=== PATIENT | female | born 1995 | race Caucasian/White ===

== ENCOUNTER 2017-04-09 11:28 | Emergency (ER) | payer BC | END 2017-04-09 14:55 | disposition left against medical advice (07) | LOC: UCCORT 11:28 | DX: R39.9 Unspecified symptoms and signs involving the genitourinary system (principal); Z53.21 Procedure and treatment not carried out due to patient leaving prior to being seen by health care provider | CPT/HCPCS: 81003 ==

== ENCOUNTER 2017-04-09 14:56 | Emergency (ER) | payer BC ==
[2017-04-09 17:31] VITALS: BP 134/74
--- NOTE | 2017-04-09 17:54 | UC ---
Complaint Female HPI - HPI Summary HPI Summary: Pt c/o sudden onset of frequency, urgency and dysuria since this morning. Pt also c/o of cold sore on lower lip. Pt states that she has frequent UTI's and has a history of cold sores that only began last year and she was "very sick" with first outbreak. - History Of Current Complaint Stated Complaint: URINARY COMPLAINT Time Seen by Provider: 04/09/17 17:15 Hx Obtained From: Patient Hx Last Menstrual Period: 03/24/17 ?: No Onset/Duration: Sudden Onset, Still Present Timing: Constant Severity Initially: Mild Severity Currently: Moderate - cold sore. Pain Intensity: 0 Character: Dull, Burning Aggravating Factor(s): Urination, Other - touch to lip Alleviating Factor(s): Meds - abreva - Risk Factors Ectopic Risk Factor: Negative Ovarian Torsion Risk Factor: Reproductive Age - Allergies/Home Medications Allergies/Adverse Reactions: Allergies Allergy/AdvReac Type Severity Reaction Status Date / Time No Known Allergies Allergy Verified 04/09/17 17:26 Home Medications: Home Medications Norgestrel/Ethinyl Estrad TAB* [Ogestrel TAB 0.5/0.05*] 1 tab DAILY 04/09/17 [ History Confirmed 04/09/17] PMH/Surg Hx/FS Hx/Imm Hx Previously Healthy: Yes - Surgical History Surgical History: Yes Surgery Procedure, Year, and Place: tonsils. wisdom teeth - Family History Known Family History: Positive: Hypertension, Other - ovarian cancer, maternal grandmother - Social History Occupation: Student Lives: With Family Alcohol Use: Weekly Substance Use Type: None Smoking Status (MU): Never Smoked Tobacco Have You Smoked in the Last Year: No Review of Systems Constitutional: Chills, Fatigue Skin: Other - cold sore on right lower lip Eyes: Negative ENT: Negative Respiratory: Negative Cardiovascular: Negative Gastrointestinal: Negative Genitourinary: Dysuria, Frequency, Urgency Motor: Negative Neurovascular: Negative Musculoskeletal: Negative Neurological: Negative Psychological: Negative Is Patient Immunocompromised?: No All Other Systems Reviewed And Are Negative: Yes Physical Exam Triage Information Reviewed: Yes Appearance: Well-Appearing Vital Signs: Initial Vital Signs Temp 97.4 F 04/09/17 17:27 Pulse 77 04/09/17 17:27 Resp 16 04/09/17 17:27 BP 134/74 04/09/17 17:27 Pulse Ox 100 04/09/17 17:27 Vital Signs Reviewed: Yes Eye Exam: Normal ENT Exam: Normal Dental Exam: Normal Neck exam: Normal Respiratory Exam: Normal Cardiovascular Exam: Normal Musculoskeletal Exam: Normal Neurological Exam: Normal Psychological Exam: Normal Skin Exam: Other - dime size lesion to right lower lip, vessicle fluid filled Complaint Female Dx - Course Course Of Treatment: Pts UA: negative for Leuks, nitrites, blood. Pt c/o dysuria, frequency and urgency. Urine sent for culture. - Differential Dx/Diagnosis Differential Diagnosis/HQI/PQRI: Urinary Tract Infection, Other - herpes simplex 1 Provider Diagnoses: dysuria. 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
== END 2017-04-09 18:14 | disposition home or self-care (01) ==
LOC: UCCORT 14:56
DX: R30.0 Dysuria (principal); B00.1 Herpesviral vesicular dermatitis
CPT/HCPCS: 87086; 99212; G0463

== ENCOUNTER 2017-12-27 07:27 | Emergency (ER) | payer BC ==
[2017-12-27 07:45] VITALS: BP 105/79
--- NOTE | 2017-12-27 07:57 | ED ---
Lower Extremity - HPI Summary HPI Summary: 22 yr old female with the complaint of right ankle pain. Onset yesterday when she fell and twisted right ankle. Pain lateral and medial side of ankle. No foot pain. no proximal leg pain. No other complaints. No other injuries. Pain is moderate. Worse with walking. - History of Current Complaint Chief Complaint: UCLowerExtremity Stated Complaint: S/P FALL RIGHT ANKLE PAIN Time Seen by Provider: 12/27/17 07:44 Hx Last Menstrual Period: 12/09/17 Pain Intensity: 7 - Allergies/Home Medications Allergies/Adverse Reactions: Allergies Allergy/AdvReac Type Severity Reaction Status Date / Time No Known Allergies Allergy Verified 04/09/17 17:26 Home Medications: Home Medications Ibuprofen 400 mg PO ONCE 12/27/17 [History Confirmed 12/27/17] PMH/Surg Hx/FS Hx/Imm Hx - Surgical History Surgery Procedure, Year, and Place: tonsils. wisdom teeth Infectious Disease History: No Infectious Disease History: Denies: Hx Clostridium Difficile, Hx Hepatitis, Hx Human Immunodeficiency Virus (HIV), Hx of Known/Suspected MRSA, Hx Shingles, Hx Tuberculosis, Hx Known/ Suspected VRE, Hx Known/Suspected VRSA, History Other Infectious Disease, Traveled Outside the [place] in Last 30 Days - Family History Known Family History: Positive: Hypertension, Other - ovarian cancer, maternal grandmother - Social History Occupation: Student Alcohol Use: Weekly Substance Use Type: Reports: None Smoking Status (MU): Never Smoked Tobacco Have You Smoked in the Last Year: No Review of Systems Positive: Other - ankle pain All Other Systems Reviewed And Are Negative: Yes Physical Exam Triage Information Reviewed: Yes Vital Signs On Initial Exam: Initial Vitals Temp Pulse Resp BP Pulse Ox 97.6 F 85 16 105/79 99 12/27/17 07:41 12/27/17 07:41 12/27/17 07:41 12/27/17 07:41 12/27/17 07:41 Vital Signs Reviewed: Yes Appearance: Positive: Well-Appearing, No Pain Distress Skin: Positive: Warm, Skin Color Reflects Adequate Perfusion Head/Face: Positive: Normal Head/Face Inspection Eyes: Positive: EOMI ENT: Positive: Normal ENT inspection Neck: Positive: Nontender Respiratory/Lung Sounds: Positive: Clear to Auscultation, Breath Sounds Present Cardiovascular: Positive: RRR. Negative: Murmur Abdomen Description: Positive: Nontender Musculoskeletal: Positive: Other - No tenderness over the proximal fibula right leg. She has STS and tenderness over the lateral malleolus and medial malleolus. No tenderness over the lateral foot. Neurological: Positive: Sensory/Motor Intact, Alert, Oriented to Person Place, Time, CN Intact II-III Psychiatric: Positive: Normal - See Coma Scale Best Eye Response: 4 - Spontaneous Best Motor Response: 6 - Obeys Commands Best Verbal Response: 5 - Oriented Coma Scale Total: 15 Diagnostics - Vital Signs Vital Signs Temp Pulse Resp BP Pulse Ox 12/27/17 07:41 97.6 F 85 16 105/79 99 - Laboratory Lab Statement: Any lab studies that have been ordered have been reviewed, and results considered in the medical decision making process. - Radiology ankle right Radiology Interpretation Completed By: Radiologist - STS lat malleolus Lower Extremity Course/Dx - Course Course Of Treatment: 22 yr old female with ankle pain. - Diagnoses Provider Diagnoses: Sprain of ankle, right Discharge - Sign-Out/Discharge Documenting (check all that apply): Patient Departure All imaging exams completed and their final reports reviewed: Yes - Discharge Plan Condition: Good Disposition: HOME Prescriptions: Ibuprofen TAB* [Motrin TAB* 400 MG] 400 mg PO Q6H PRN #20 tab PRN Reason: Pain Patient Education Materials: Ankle Sprain (ED) Referrals: No Primary Care Phys,NOPCP [Primary Care Provider] - Lenard Miller MD [Medical Doctor] - 2 Days - Billing Disposition and Condition Condition: GOOD Disposition: Home
--- NOTE | 2017-12-27 08:16 | RAD ---
INDICATION: Right ankle pain after twisting injury the previous day COMPARISON: None. TECHNIQUE: 3 views of the right ankle were obtained. FINDINGS: There is a mild degree of asymmetric soft tissue swelling overlying the fibular malleolus. The bones are normal alignment. Joint spaces appear maintained. No fracture is seen. IMPRESSION: THERE IS A MILD DEGREE OF SOFT TISSUE SWELLING OVERLYING THE FIBULAR MALLEOLUS WITHOUT UNDERLYING RADIOGRAPHICALLY APPARENT FRACTURE OR DISLOCATION. If the patient's symptoms persist, follow-up imaging is recommended.
== END 2017-12-27 08:41 | disposition home or self-care (01) ==
LOC: UCCORT 07:27
DX: S93.401A Sprain of unspecified ligament of right ankle, initial encounter (principal); W19.XXXA Unspecified fall, initial encounter; Y92.9 Unspecified place or not applicable
CPT/HCPCS: 99213; G0463